=== PATIENT | female | born 1935 | race Caucasian/White ===

== ENCOUNTER 2020-05-31 08:00 | Inpatient (IN) | payer OTHER ==
[2020-05-31] VITALS (32 sets, daily range): BP systolic 113–176; BP diastolic 46–112
[~2020-05-31] VITALS: Ht 152.4 cm; Wt 51.2 kg
--- NOTE | ~2020-05-31 | O ---
[facility] [place] [place] [address] OPERATIVE REPORT Name: JESUS CH Room #: 243-P ADM IN M.R.#: [id number] Admission: 05/31/20 Attend Phys: Phuong Mckeon MD Discharge: Date of : 34 Report #: [id number] THIS REPORT FOR: cc: Smith Paulino MD, Steven A. MD Patterson,Vinny Ceja MD ~ DATE OF SERVICE: 05/31/2020 PREOPERATIVE DIAGNOSES: 1. Gastric volvulus. 2. Paraesophageal hernia. POSTOPERATIVE DIAGNOSES: 1. Gastric volvulus. 2. Paraesophageal hernia. 3. Gastric perforation. OPERATION: 1. Laparoscopic repair of paraesophageal hernia without mesh implantation without fundoplication. 2. Laparoscopic repair of gastric perforation, omental patch repair. 3. Laparoscopic placement of 16-Latvian gastrostomy. SURGEON: Vinny Fregoso MD ANESTHESIA: General. ESTIMATED BLOOD LOSS: Minimal. SPECIMEN: None. DESCRIPTION OF PROCEDURE: After informed consent was obtained, the patient was brought to the operating room and placed supine. SCDs were placed and working, preoperative antibiotics were administered, general anesthesia was induced. The abdomen was prepped and draped in the usual sterile fashion. A 1 mm incision was made in the left upper quadrant. Veress needle was inserted and pneumoperitoneum was established. I then inserted a left periumbilical 5 mm trocar under direct vision using Visiport technique. The patient was then placed in the reverse Trendelenburg position. A Micky retractor was placed in the epigastrium and the liver was retracted anteriorly and superiorly to allow visualization of the hiatus. I placed 2 right upper quadrant 5 mm ports and a left-sided 8 mm trocar. One of the 5 mm port was then switched out to a 10 mm port, 10 mm port in the right upper quadrant. [facility] [address] [place] [address] OPERATIVE REPORT Name: JESUS CH Room #: 243-P [facility] IN [facility].#: [id number] Admission: 05/31/20 Attend Phys: Phuong Mckeon MD Discharge: Date of : 34 Report #: [id number] I began by grasping the pars flaccida. The stomach was then grasped and retracted outside of the mediastinum. LigaSure dissection was used to dissect the pars flaccida and dissection was carried up to the right marci, which was identified. The hernia sac was then incised and the hernia sac was fully reduced anteriorly and posteriorly. During this dissection, I could see that there was a small perforation in the anterior proximal stomach. This is where the tissue was very friable and was likely the ischemic area. Once I had the hernia sac down, a [place] drain was placed posterior to the GE junction to allow for retraction. A full mediastinal dissection was undertaken and all of the hernia sac was reduced. I then repaired the gastrotomy using 3-0 Vicryl in interrupted fashion. I then oversewed the area with a 3-0 silk. A tongue of omentum was fashioned and brought up to the repair and this was incorporated into the stitch with the 3-0 silk to provide omental patch repair. The stomach was then retracted superiorly and to the left. This allowed visualization of the crura. The crura were reapproximated with a 2-0 V-Loc suture in running fashion. I did not place a mesh. The crura came together nicely. I then had the anesthesiologist insufflate the stomach. Three T-bar fasteners were placed under direct vision into the antrum of the stomach. The fasteners were then used to retract the stomach toward the abdominal wall. Stomach was then cannulated with a Seldinger needle. Wire was placed. A dilator with a sheath was placed. The wire was removed. A 16-Latvian gastrostomy tube was placed through the sheath as the sheath was peeled away. The balloon was filled with 3 mL of normal saline. It was brought to the abdominal wall. The T-fasteners were tightened down and this performed the gastrostomy. The liver was then placed back into its anatomic position. The ports were removed under direct vision. The fascia in the right upper quadrant 10 mm incision was closed with a [id number] 0 Vicryl. Skin was closed with 4-0 Monocryl. Incisions were dressed with Steri-Strips. COMPLICATIONS: None. DISPOSITION: The patient was taken to recovery in satisfactory condition. By: 1757 1821 Vinny Fregoso MD /jerman
[~2020-05-31 08:00] MED LIST: ALEVE220 MG PO; AMLODIPINE BESY10 MG PO; ATIVAN1 MG PO; BENICAR40 MG PO; BISOPROLOL FUMAR5 MG PO; CALCIUM 500 +1 EAC5 PO; CELEXA10 MG PO; FERROUS SULFAT324 M1 PO; FISH OIL 1,001000 M2 PO; PROTONIX40 M1 PO; VYTORIN 10-801 EACH PO; ZIAC 10-6.25 M1 EACH PO
[2020-05-31 09:00] LABS: ABSOLUTE NEUTROPHILS 16.4 thou/uL (1.4-8.2); BASOPHILS 0.2 % (0.0-2.0); HEMATOCRIT 48.1 % (37.0-47.0); HEMOGLOBIN 15.8 gm/dL (12.0-15.0); MCH 31.2 pg (26.0-34.0); MCHC 32.8 g/dL (28.0-37.0); MCV 95.2 fL (80.0-100.0); MONOCYTES 3.6 % (1.0-8.0); PLATELET COUNT 285 thou/uL (150-400); POLYS 90.2 % (36.0-66.0); RBC 5.05 mil/uL (4.20-5.00); RDW 13.5 % (10.5-14.5); WBC 18.2 thou/uL (4.0-11.0)
[2020-05-31 09:03] LABS: ANION GAP 13 mmol/L (7-16); BUN 28 mg/dL (7-18); CALCIUM 10.6 mg/dL (8.5-10.1); CHLORIDE 96 mmol/L (98-107); CO2 37 mmol/L (21-32); GLUCOSE 259 mg/dL (74-106); POTASSIUM 3.4 mmol/L (3.5-5.1); SODIUM 146 mmol/L (136-145)
[2020-05-31 09:13] LABS: ALBUMIN 3.6 g/dL (3.4-5.0); SGOT 17 U/L (15-37); SGPT 22 U/L (14-59); TOTAL BILIRUBIN 0.6 mg/dL (0.2-1.0); TOTAL PROTEIN 8.1 g/dL (6.4-8.2); TROPONIN-I <0.06 ng/mL (<0.06)
[2020-05-31 09:33] LABS: URINE BLOOD NEGATIVE (Negative); URINE CLARITY CLEAR; URINE COLOR YELLOW; URINE GLUCOSE-RANDOM* NEGATIVE (Negative); URINE KETONES TRACE (Negative); URINE LEUKOCYTES-REFLEX NEGATIVE (Negative); URINE NITRITE-REFLEX NEGATIVE (Negative); URINE PROTEIN (DIPSTICK) 1+ (Negative)
[2020-05-31 09:37] LABS: ICTOTEST (BILI CONFIRMATORY) Negative (Negative); URINE BILIRUBIN NEGATIVE (Negative)
[2020-05-31 10:06] LABS: SQUAMOUS 0-3 Few /LPF (0-3)
[2020-05-31 10:07] LABS: BACTERIA-REFLEX 1-9 Few /HPF (None Seen); CRYSTALS None Seen /LPF (None Seen); HYALINE CASTS 0-3 Few /LPF (None Seen); URINE WBC-REFLEX 0-5 Rare /HPF (0-5)
[2020-05-31 10:08] LABS: URINE RBC None Seen /HPF (0-2)
--- NOTE | 2020-05-31 10:51 | NUR ---
SPOKE TO PIPE ON IV TEAM NOTIFIED EDP ORDERED A CENTRAL LINE, PIPE REPORTED SHE WOULD COME UP AFTER SHE WAS FINISHED IN ICU. WILL CONTINUE TO MONITOR FOR SAFETY FOR REMAINDER OF THE SHIFT.
--- NOTE | 2020-05-31 11:31 | EKG ---
[address] [address] ELECTROCARDIOGRAM REPORT Name: JESUS CH Room #: REG JEFF Espinoza#: [id number] Admission: 05/31/20 Attend Phys: Discharge: Date of : 34 Report #: [id number] [facility] ED Test Date: 2020-05-31 Test Time: 10:02:55 Pat Name: JESUS CH Department: Room: Gender: F Beauty Advisor: SHAHBAZ COLIN : 1935 Requested By: Dieter Dewitt Order Number: [id number] MD: Klaus Morales Measurements Intervals [place] Rate: 161 P: 16 MN: 138 QRS: 29 QRSD: 123 T: -42 QT: 322 QTc: 527 Interpretive Statements tachycardia, suspect atrial flutter Nonspecific intraventricular conduction delay Artifact in lead(s) I,II,aVR,aVF,V5 Compared to ECG 12/17/2015 10:00:26 Intraventricular conduction delay now present Sinus rhythm no longer present Ventricular premature complex(es) no longer present Myocardial infarct finding no longer present Poor R-wave progression no longer present Electronically Signed On 05-31-2020 11:31:49 CDT by Klaus Morales [email or web address] <ELECTRONICALLY SIGNED> By: Klaus Morales MD, FACC 05/31/20 1131 1002 1002 Klaus Morales MD, FAC /EPI
--- NOTE | 2020-05-31 11:50 | NUR ---
ATTEMPTED TO CALL [facility] TO VERIFY MEDICATION LIST, WAS PLACED ON HOLD FOR 10 MINUTES. HAD TO HANG UP, WILL TRY AGAIN LATER.
--- NOTE | 2020-05-31 12:33 | NUR ---
CONSULTED TO PLACE A CENTRAL LINE IN ER FOR A PATIENT ADMITTING WITH SEPSIS. ORDER AND CONSENT NOTED. SPOKE TO THE PATIENT AND AND THEY BOTH VERBALIZED UNDERSTANDING OF RISKS AND BENIFITS OF LINE PLACEMENT. THE RIGHT IJ WAS WIDLEY PATENT. A #6F TRIPLE LUMEN CENTRAL LINE WAS PLACED PER HOSPITAL POLICY. THE 25CM LINE ADVANCED WITHOUT DIFFICULTY. A STAT CHEST XRAY CONFIRMED LINE IN PROPER PROSITION. CHAIN SALES CONSULTANT NOTIFIED AND LINE WAS RELEASED FOR USE
--- NOTE | 2020-05-31 12:43 | NUR ---
TRANSPORTED TO GI TO PROCEDURE BY GI NURSE, BALL THREAD MACHINE TENDER AND ANESTHESIA.
--- NOTE | 2020-05-31 13:39 | NUR ---
ATTEMPTED TO CALL REPORT, WAS NOTIFIED THAT GI IS CURRENTLY ON THE PHONE WITH THE ACCEPTING NURSE. WILL TRY AGAIN.
--- NOTE | 2020-05-31 13:49 | NUR ---
ATTEMPTED TO CALL REPORT AGAIN, PHONE CONTINUOUSLY RANG; NO ANSWER. WILL ASSIST FURTHER IF NEEDED.
[2020-05-31 14:41] LABS: BASOPHILS 0.3 % (0.0-2.0); EOSINOPHILS 0.1 % (0.0-3.0); HEMATOCRIT 38.3 % (37.0-47.0); LYMPHOCYTES 4.5 % (24.0-44.0); MCH 31.6 pg (26.0-34.0); MCHC 33.3 g/dL (28.0-37.0); MCV 94.9 fL (80.0-100.0); MONOCYTES 7.5 % (1.0-8.0); PLATELET COUNT 217 thou/uL (150-400); POLYS 87.6 % (36.0-66.0); RBC 4.03 mil/uL (4.20-5.00); RDW 13.6 % (10.5-14.5); WBC 19.4 thou/uL (4.0-11.0)
[2020-05-31 14:42] LABS: HEMOGLOBIN 12.8 gm/dL (12.0-15.0)
[2020-05-31 15:21] LABS: ANION GAP 14 mmol/L (7-16); BUN 29 mg/dL (7-18); CALCIUM 10.1 mg/dL (8.5-10.1); CHLORIDE 96 mmol/L (98-107); CO2 36 mmol/L (21-32); CREATININE 1.9 mg/dL (0.6-1.0); GLUCOSE 256 mg/dL (74-106); POTASSIUM 3.5 mmol/L (3.5-5.1); SODIUM 146 mmol/L (136-145)
[2020-05-31 15:30] LABS: TROPONIN-I <0.06 ng/mL (<0.06)
--- NOTE | 2020-05-31 19:36 | NUR ---
RECIEVED PATIENT FROM GI LAB ON STRECHER INTUBATED. ATTACHED TO MONITOR AND WILL BE GOING TO SURGERY SOON. BACK FROM SURGERY AT 1800: NGT TO LIS, GTUBE TO LUQ CLAMPED AND ALMAS BULB TO MID ABDOMEN WITH SMALL AMOUNT OF SANGUINOUS FLUID NOTED. REPORT GIVEN TO NIGHT RN
[2020-05-31 20:36] LABS: CREATININE 1.2 mg/dL (0.6-1.0); MAGNESIUM 1.3 mg/dL (1.8-2.4)
[2020-05-31 20:38] LABS: CALCIUM 7.7 mg/dL (8.5-10.1)
[2020-05-31 20:39] LABS: POTASSIUM 2.7 mmol/L (3.5-5.1)
[2020-05-31 22:29] LABS: BE(vivo) -0.6 mmol/L (-2 to +3); HCO3 23.9 mmol/L (22.0-26.0); PCO2 38.9 mmHg (35.0-45.0); pH 7.406 (7.360-7.450); sO2 98.9 % (92.0-98.0)
[2020-05-31 23:00] LABS: % SATURATION 22 % (20-39); IRON 51 ug/dL (50-170); TIBC 232 ug/dL (250-450)
[2020-06-01] VITALS (67 sets, daily range): BP systolic 70–146; BP diastolic 20–76
[2020-06-01] LABS: FOLIC ACID 99.1 ng/mL (8.6-58.9)
[2020-06-01 05:23] LABS: HEMATOCRIT 36.4 % (37.0-47.0); HEMOGLOBIN 11.9 gm/dL (12.0-15.0); MCH 31.3 pg (26.0-34.0); MCHC 32.7 g/dL (28.0-37.0); MCV 95.9 fL (80.0-100.0); PLATELET COUNT 205 thou/uL (150-400); RBC 3.79 mil/uL (4.20-5.00); RDW 14.1 % (10.5-14.5); WBC 20.6 thou/uL (4.0-11.0)
[2020-06-01 05:39] LABS: ALBUMIN 2.1 g/dL (3.4-5.0); CALCIUM 8.2 mg/dL (8.5-10.1); CREATININE 1.2 mg/dL (0.6-1.0); MAGNESIUM 2.2 mg/dL (1.8-2.4); PHOSPHORUS 2.9 mg/dL (2.5-4.9); TOTAL BILIRUBIN 0.5 mg/dL (0.2-1.0)
[2020-06-01 06:05] LABS: POTASSIUM 3.8 mmol/L (3.5-5.1)
[2020-06-01 07:00] LABS: ABSOLUTE NEUTROPHILS 19.2 thou/uL (1.4-8.2); LARGE PLATELETS OCCASIONAL
[2020-06-01 12:43] LABS: HEMATOCRIT 34.6 % (37.0-47.0); HEMOGLOBIN 11.5 gm/dL (12.0-15.0); MCH 31.7 pg (26.0-34.0); MCHC 33.1 g/dL (28.0-37.0); MCV 95.8 fL (80.0-100.0); RBC 3.61 mil/uL (4.20-5.00); WBC 19.1 thou/uL (4.0-11.0)
[2020-06-01 12:48] LABS: CALCIUM 7.9 mg/dL (8.5-10.1); CREATININE 1.4 mg/dL (0.6-1.0); POTASSIUM 3.2 mmol/L (3.5-5.1)
--- NOTE | 2020-06-01 14:05 | 2DMMODE ---
[facility] [place] [address] 2 D/M-MODE ECHOCARDIOGRAM Name: JESUS CH Room #: 243-P ADM IN M.R.#: [id number] Admission: 05/31/20 Attend Phys: Phuong Mckeon MD Discharge: Date of : 34 Report #: [id number] THIS REPORT FOR: cc: Smith Paulino MD, Steven A. MD Park, Jin S. MD ~ APPROVED REPORT Study performed: 06/01/2020 13:15:53 EXAM: Comprehensive 2D, Doppler, and color-flow Echocardiogram Patient Location: ICU Room #: 243 Status: routine BSA: 1.70 HR: 140 bpm BP: 86/39 mmHg Rhythm: Atrial Fibrillation Other Information Study Quality: Fair/not all measurements taken. Technically limited study due to patient on vent/no mobility/obesity/rapid heart rates.. Indications Afib, hypotension. (Heart rates ranged from 115bpm-180bpm during exam). 2D Dimensions IVSd: 10.82 (7-11mm) LVOT Diam: 20.00 (18-24mm) LVDd: 31.46 mm PWd: 11.42 (7-11mm) LVDs: 22.12 (25-40mm) Aortic Root: 34.39 mm Aortic Valve AoV Peak Giuseppe.: 2.81 m/s AO Peak Gr.: 31.61 mmHg LVOT Max P.30 mmHg AO Mean Gr.: 22.30 mmHg AO V2 Mean: 2.31 m/s LVOT Max V: 1.35 m/s AO V2 VTI: 54.40 cm MARGOT Vmax: 1.51 cm2 Pulmonary Valve [facility] [address] [place] [address] 2 D/M-MODE ECHOCARDIOGRAM Name: JESUS CH Room #: [facility] IN [facility]#: [id number] Admission: 05/31/20 Attend Phys: Phuong Mckeon, Discharge: Date of : 34 Report #: [id number] PV Peak Giuseppe.: 1.03 m/s PV Peak Gr.: 4.27 mmHg Tricuspid Valve TR Peak Giuseppe.: 2.47 m/s RAP Estimate: 10.00 mmHg TR Peak Gr.: 24.32 mmHg PA Pressure: 34.00 mmHg Left Ventricle The left ventricle is normal size. There is normal LV segmental wall motion. There is normal left ventricular wall thickness. The left ventricular systolic function is normal. LVEF is 65%. This study is not technically sufficient to allow evaluation of the LV diastolic function. Right Ventricle The right ventricle is normal size. The right ventricular systolic function is normal. Atria Left atrium is dilated. Right atrium is not well visualized. Aortic Valve Aortic valve is moderately calcified. No aortic regurgitation is present. There is mild valvular aortic stenosis. Calculated aortic valve area is 1.5 cm2 with maximum pressure gradient of 32 mmHg and mean pressure gradient of 22 mmHg. Mitral Valve Mitral valve leaflets are thickened. Mild mitral annular calcification. There is no mitral valve regurgitation noted. No evidence of mitral valve stenosis. Tricuspid Valve The tricuspid valve is normal in structure. Trace tricuspid regurgitation. Estimated PAP is 30-35mmHg. Pulmonic Valve The pulmonary valve is normal in structure. There is no pulmonic valvular regurgitation. Great Vessels The aortic root is normal in size. IVC is normal in size and collapses <50% with inspiration. Pericardium Possible small pericadial effusion. [facility] [address] [place] [address] 2 D/M-MODE ECHOCARDIOGRAM Name: JESUS CH Room #: 243-P [facility] IN .R.#: [id number] Admission: 05/31/20 Attend Phys: Phuong Mckeon, Discharge: Date of : 34 Report #: [id number] <Conclusion> The left ventricle is normal size. There is normal left ventricular wall thickness. The left ventricular systolic function is normal. The right ventricle is normal size. Left atrium is dilated. There is mild valvular aortic stenosis. Mitral valve leaflets are thickened. There is no mitral valve regurgitation noted. <ELECTRONICALLY SIGNED> By: Lukas Samuel MD 06/01/20 1404 1404 1404 Lukas Samuel MD /JUAN
--- NOTE | 2020-06-01 14:45 | NUR ---
0730-DR. THAO IN.FAILED CPAP ATTEMPT.--VW 0730-SPUTUM C&S SENT. --VW ~0900-SHRT BURST OF AFIB, BROKE ON OWN.--VW 0915- AT BEDSIDE.--VW 1015- IN, SPOKE W . LEFT FOR HOME p. PLANS TO RETURN THIS pNOON.--VW
--- NOTE | 2020-06-01 15:24 | NUR ---
chart review. discussed during am rounds. she remains on vent, post op. cm spoke with spouse candice via phone call. she lives home with him, 2 story house 1 step into house and bilat handrails on stairs in home, she can still do stairs. has walker, and wheel chair for long distance. chcs in past. cm asked about LONG-TERM. " yes we have insurance policy but we want to stay in our home for as long as we can. i have her and manage her medication"/candice. will cont following as needed for dc needs.
--- NOTE | 2020-06-01 15:25 | EKG ---
[address] [address] ELECTROCARDIOGRAM REPORT Name: JESUS CH Room #: 243 ADM IN M.R.#: [id number] Admission: 05/31/20 Attend Phys: Phuong Mckeon MD Discharge: Date of : 34 Report #: [id number] [facility] ED Test Date: 2020-05-31 Test Time: 08:53:43 Pat Name: JESUS CH Department: Room: [facility] Gender: F Forensic Anthropologist: MEGAN LONG : 1935 Requested By: Dieter Dewitt Order Number: [id number] MD: Keyur Campa Measurements Intervals [place] Rate: 72 P: ND: QRS: 8 QRSD: 149 T: -31 QT: 390 QTc: 427 Interpretive Statements Sinus with frequent PACs and PVC Poor R-wave progression no longer present Electronically Signed On 06-01-2020 15:24:48 CDT by Keyur Campa [email or web address] <ELECTRONICALLY SIGNED> By: Keyur Campa MD 06/01/20 1524 0853 0853 MD ARNUA Peña
--- NOTE | 2020-06-01 15:26 | EKG ---
[address] [address] ELECTROCARDIOGRAM REPORT Name: JESUS CH Room #: [facility] ADM IN M.R.#: [id number] Admission: 05/31/20 Attend Phys: Phuong Mckeon MD Discharge: Date of : 34 Report #: [id number] [facility] Test Date: 2020-06-01 Test Time: 11:38:53 Pat Name: JESUS CH Department: Room: [facility] Gender: F Wire Bound Box Machine Operator: BHASKAR : 1935 Requested By: Phuong Mckeon Order Number: [id number] MD: Keyur Campa Measurements Intervals [place] Rate: 121 P: 51 NC: 189 QRS: 1 QRSD: 76 T: 41 QT: 298 QTc: 423 Interpretive Statements Atrial fibrillation with rapid ventricular response Electronically Signed On 06-01-2020 15:26:23 CDT by Keyur Campa [email or web address] <ELECTRONICALLY SIGNED> By: Keyur Campa MD 06/01/20 1526 1138 1138 Keyur Campa MD /HEIDE
[2020-06-02] VITALS (95 sets, daily range): BP systolic 91–134; BP diastolic 34–74
[2020-06-02 02:06] LABS: GLYCOHEMOGLOBIN (HGB A1C) 6.1 % (4.8-5.6)
[2020-06-02 02:22] LABS: HEMATOCRIT 34.5 % (37.0-47.0); HEMOGLOBIN 11.3 gm/dL (12.0-15.0); MCH 31.7 pg (26.0-34.0); MCHC 32.8 g/dL (28.0-37.0); MCV 96.7 fL (80.0-100.0); PLATELET COUNT 206 thou/uL (150-400); RBC 3.56 mil/uL (4.20-5.00); RDW 14.3 % (10.5-14.5); WBC 24.7 thou/uL (4.0-11.0)
[2020-06-02 02:33] LABS: MAGNESIUM 1.8 mg/dL (1.8-2.4); PHOSPHORUS 2.5 mg/dL (2.5-4.9)
[2020-06-02 02:36] LABS: ALBUMIN 1.8 g/dL (3.4-5.0); CALCIUM 7.3 mg/dL (8.5-10.1); CREATININE 0.9 mg/dL (0.6-1.0); POTASSIUM 3.8 mmol/L (3.5-5.1); TOTAL BILIRUBIN 0.3 mg/dL (0.2-1.0); TOTAL PROTEIN 4.9 g/dL (6.4-8.2)
[2020-06-02 04:55] LABS: BE(vivo) -3.5 mmol/L (-2 to +3); PCO2 31.6 mmHg (35.0-45.0); PO2 98.2 mmHg (80.0-100.0); sO2 97.6 % (92.0-98.0)
[2020-06-02 08:12] LABS: BE(vivo) -5.2 mmol/L (-2 to +3); HCO3 20.2 mmol/L (22.0-26.0); PCO2 38.5 mmHg (35.0-45.0); PO2 88.8 mmHg (80.0-100.0); pH 7.337 (7.360-7.450); sO2 96.3 % (92.0-98.0)
--- NOTE | 2020-06-02 08:52 | NUR ---
SPOKE W/ PT'S , CALOS, ON THE PHONE. UPDATED ON PT CONDITION W/ REASSURANCES AND EMOTIONAL SUPPORT PROVIDED. CALOS STATED THAT HE WOULD BE VISITING THIS MORNING.
[2020-06-02 08:54] LABS: ABSOLUTE NEUTROPHILS 20.7 thou/uL (1.4-8.2); PLATELET ESTIMATE NORMAL
--- NOTE | 2020-06-02 12:08 | EKG ---
[address] [address] ELECTROCARDIOGRAM REPORT Name: JESUS CH Room #: 243- ADM IN M.R.#: [id number] Admission: 05/31/20 Attend Phys: Phuong Mckeon MD Discharge: Date of : 34 Report #: [id number] [facility] Test Date: 2020-06-02 Test Time: 09:20:03 Pat Name: JESUS CH Department: Room: 243 Gender: F Yarn Texturing Machine Operator: TUAN : 1935 Requested By: Lo Galvan Order Number: [id number] MD: Klaus Morales Measurements Intervals [place] Rate: 103 P: 53 MN: 197 QRS: -11 QRSD: 78 T: -11 QT: 315 QTc: 413 Interpretive Statements Sinus tachycardia Multiform ventricular premature complexes Inferior infarct, old Compared to ECG 06/01/2020 11:38:53 Ventricular premature complex(es) now present Myocardial infarct finding now present Atrial fibrillation no longer present Electronically Signed On 06-02-2020 12:07:46 CDT by Klaus Morales [email or web address] <ELECTRONICALLY SIGNED> By: Klaus Morales MD, FAC 06/02/20 1207 9 9 Klaus Morales MD, [facility] /EPI
[2020-06-02 12:31] LABS: HEMATOCRIT 33.4 % (37.0-47.0); HEMOGLOBIN 10.8 gm/dL (12.0-15.0)
--- NOTE | 2020-06-02 20:09 | NUR ---
This RN spoke to Carmelina, daughter and , Darren at 1999. Updated on patient care and all questions answered.
[2020-06-03] VITALS (34 sets, daily range): BP systolic 98–159; BP diastolic 38–62
[2020-06-03 05:02] LABS: CALCIUM 7.5 mg/dL (8.5-10.1); CREATININE 0.8 mg/dL (0.6-1.0); MAGNESIUM 1.7 mg/dL (1.8-2.4); PHOSPHORUS 1.9 mg/dL (2.5-4.9)
[2020-06-03 10:07] LABS: HEMATOCRIT 31.3 % (37.0-47.0); HEMOGLOBIN 10.1 gm/dL (12.0-15.0); MCH 31.5 pg (26.0-34.0); MCHC 32.1 g/dL (28.0-37.0); MCV 97.8 fL (80.0-100.0); RDW 15.1 % (10.5-14.5); WBC 14.8 thou/uL (4.0-11.0)
[2020-06-03 11:35] LABS: ABSOLUTE NEUTROPHILS 12.1 thou/uL (1.4-8.2); ANISOCYTOSIS SLIGHT; BURR CELLS FEW; POIKILOCYTOSIS SLIGHT
[2020-06-03 11:36] LABS: LARGE PLATELETS RARE; PLATELET COUNT 157 thou/uL (150-400)
--- NOTE | 2020-06-03 14:11 | NUR ---
REPORT RECIEVED FROM CHRISTY GUZMAN.
--- NOTE | 2020-06-03 19:12 | NUR ---
BEDSIDE REPORT GIVEN TO NIGHT RN.
--- NOTE | 2020-06-03 22:00 | NUR ---
TRANSFER TO ROOM 205 VIA BED. REPORT CALLED TO NURSE FOR ONGOING CARE. UPDATED ON GOING TO CCU UNIT FOR CARE AND COMING OUT OF ICU AT THIS TIME FOR CARE
[2020-06-04 00:30] VITALS: BP 122/50
[2020-06-04 04:41] LABS: CALCIUM 7.8 mg/dL (8.5-10.1); CREATININE 0.8 mg/dL (0.6-1.0); MAGNESIUM 1.8 mg/dL (1.8-2.4); PHOSPHORUS 2.7 mg/dL (2.5-4.9); POTASSIUM 4.1 mmol/L (3.5-5.1)
[2020-06-04 04:45] VITALS: BP 136/64
[2020-06-04 07:57] VITALS: BP 127/60
--- NOTE | 2020-06-04 08:12 | NUR ---
ASSUMED CARE FOR PATIENT AT 0700. PT REPORT AT BEDSIDE. ASSESSMENT PERFORMED CHARTED. PT APPEARS TO BE ALERT AND ORIENTED X 2. PT DOES NEED SOME REORIENTATION. PT DOESN'T REMEMBER HAVING SURGERY. VSS. WILL CONTINUE TO MONITOR.
--- NOTE | 2020-06-04 08:49 | NUR ---
PT ARRIVED TO ROOM 205 AT 2230, IV'S INFUSING IN R IJ, TALBOT WITH CLEAR YELLOW URINE, NG IN L NARE TO LIS, PEG TO DEPENDENT DRAINAGE BAG, LAP SITES CDI, VSS, NO C/O PAIN, UPPER EXT EDEMATOUS AND PROPPED UP ON PILLOWS, PT ALERT AND ABLE TO USE CALL LIGHT APPROPRIATLY, COUGHING UP THICK SPUTM AND NEEDING FREQUENT SUCTIONING, BG CHECKED Q 6 HRS AND TREATED, REPORT GIVEN TO NEXT SHIFT TO CON'T WITH PPOC.
[2020-06-04 11:44] VITALS: BP 128/47
--- NOTE | 2020-06-04 12:31 | NUR ---
discussed during los, possible ready for dc on monday06/08/20. cm spoke with khoa spouse dewayne via phone call. khoa transferred from icu yesterday to 2n, pt and ot to eval. she possible need rehab. cm education on acute, and post acute rehab. tried to provided locations/ facilities to her spouse and he stated " she just up to chair today, will discuss this later on."/dewayne - spouse. education on send referral to see if have any bed availability." will wait on this"/spouse. will cont following as needed for dc needs.
--- NOTE | 2020-06-04 15:48 | NUR ---
PT SITTING UP IN CHAIR, WATCHING TV. PTS DRAINS INTACT, ASSESSMENT PERFORMED CHARTED. VSS. WILL CONTINUE TO MONITOR.
[2020-06-04 20:15] VITALS: BP 148/58
[2020-06-05 04:45] VITALS: BP 144/55
--- NOTE | 2020-06-05 07:17 | NUR ---
WATCHED TV MOST OF THE NIGHT.UNABLE TO SLEEP THINKING ABOUT HER FAMILY.PT HAS SOME HALLUCINATIONS TOO.REPOSITIONED Q2 HOURS.ON TPN AND AMIO GTT.MONITOR SHOWS AFIB.POC CONTINUED.
[2020-06-05 08:00] VITALS: BP 120/55
--- NOTE | 2020-06-05 08:08 | NUR ---
ASSUMED PT CARE AT 0700. PT CLEANED UP FROM A BOWEL MOVEMENT WITH RN AND HELP DESK COORDINATOR. PTS VSS. ASSESSMENT PERFORMED AND CHARTED. WILL CONTINUE TO MONITOR AND FOLLOW POC.
--- NOTE | 2020-06-05 14:21 | NUR ---
PT WAS GIVEN ATIVAN. PT CRYING, YELLING AT . PT STATES SHE HEARS HER FAMILY IN THE HALLWAY. INSTRUCTED PATIENT THAT IT IS NOT HER FAMILY. PT APPEARS TO BE VERY ANXIOUS. WILL CONTINUE TO MONITOR.
[2020-06-05 15:32] LABS: HEMATOCRIT 33.8 % (37.0-47.0); HEMOGLOBIN 11.4 gm/dL (12.0-15.0); MCH 32.5 pg (26.0-34.0); MCHC 33.8 g/dL (28.0-37.0); MCV 96.1 fL (80.0-100.0); RBC 3.52 mil/uL (4.20-5.00); RDW 14.4 % (10.5-14.5); WBC 14.2 thou/uL (4.0-11.0)
[2020-06-05 15:39] LABS: CALCIUM 8.2 mg/dL (8.5-10.1); POTASSIUM 4.3 mmol/L (3.5-5.1)
[2020-06-05 16:00] VITALS: BP 102/56
--- NOTE | 2020-06-05 16:44 | NUR ---
PT IS RESTING. VSS. WILL CONTINUE TO MONITOR.
[2020-06-05 20:54] VITALS: BP 130/59
--- NOTE | 2020-06-06 03:29 | NUR ---
Assumed pt care at 1900. No sign of distress noted in pt. Pt is stable. Pt is sleeping. Pt is arousable. Fall precaution in place. Fall assessment in place. Assessment completed and documented. Scheduled meds administered to pt. Repositinng done. Pt is stable through the night. No acute events. Discharge pending. Comtinue to monitor. No further needs at this time.
[2020-06-06 05:25] VITALS: BP 123/60
[2020-06-06 07:49] VITALS: BP 116/51
[2020-06-06 11:28] VITALS: BP 120/51
--- NOTE | 2020-06-06 14:50 | NUR ---
ASSESSMENT CHARTED. PT ALERT AND ORIENTED TO SELF AND SITUATION. VERY EMOTIONAL. PLEASANT AND COOPERATIVE WITH CARES. PRN PAIN MED GIVEN WITH PARIAL RELIEF. AT THE BEDSIDE. UPDATED ON PT'S PROGRESS. NO CONCERNS AT THIS TIME. PT PROGRESSING WELL TOWARDS DISCHARGE GOAL.
[2020-06-06 15:41] VITALS: BP 110/50
[2020-06-06 19:47] VITALS: BP 115/56
[2020-06-07 05:28] VITALS: BP 110/58
[2020-06-07 07:14] VITALS: BP 113/63
--- NOTE | 2020-06-07 07:19 | NUR ---
ASSUMED CARE AT 1900. PT ANXIOUS ABOUT BEING UNABLE TO FALL ASLEEP, GAVE ATIVAN x2 OVERNIGHT. THIS AM, FOUND PT HAD PULLED OUT IJ; PLACED GAUZE AND TAPE OVER SITE; STARTED x2 PIV IN R FA AND RESUMED PPN AND IV ABX. GAVE FULL BATH/LINEN CHANGE/SHAMPOO. PT USED BEDPAN THIS AM, SM LIQUID STOOL OUT. AFTER REPOSITIONING, PT C/O SHARP PULLING PAIN AT DRAIN SITE; GRADUALLY EASED UP, BUT EDUCATED TO INFORM NURSE IF IT STAYED PAINFUL. SHIFT REPORT GIVEN AT 0700.
[2020-06-07 11:42] VITALS: BP 95/54
[2020-06-07 15:18] VITALS: BP 106/42
--- NOTE | 2020-06-07 15:26 | NUR ---
ASSESSMENT CHARTED. PT ALERT AND ORIENTED. VSS. PRN PAIN MED GIVEN WITH PARTIAL RELIEF. REPORT FEELING MUCH BETTER TODAY. AT THE BEDSIDE. PT PROGRESSING WELL TOWARDS DISCHARGE GOAL.
[2020-06-07 20:15] VITALS: BP 134/67
[2020-06-08 04:15] VITALS: BP 114/58
[2020-06-08 07:47] VITALS: BP 103/52
--- NOTE | 2020-06-08 08:13 | NUR ---
ALERT,FORGETFUL,REPOSITIONED Q2 HOURS.SLEPT FOR A WHILE,DENIES PAIN.POC CONTINUED.
[2020-06-08 09:33] LABS: HEMATOCRIT 31.2 % (37.0-47.0); MCH 30.9 pg (26.0-34.0); MCV 96.7 fL (80.0-100.0); RBC 3.23 mil/uL (4.20-5.00); RDW 14.6 % (10.5-14.5); WBC 11.2 thou/uL (4.0-11.0)
[2020-06-08 09:39] LABS: CALCIUM 8.2 mg/dL (8.5-10.1); CREATININE 0.9 mg/dL (0.6-1.0); POTASSIUM 4.5 mmol/L (3.5-5.1)
--- NOTE | 2020-06-08 15:10 | NUR ---
PT PLEASANT AND COOPERATIVE WTH CARES. VSS. PRN PAIN MED GIVEN WITH PARTIAL RELIEF. UP IN THE CHAIR THIS SHIFT. TOLERATING FULL LIQUID DIET WELL. NO CONCERNS AT THIS TIME. PT PROGRESSING WELL TOWARDS DISCHARGE GOAL.
--- NOTE | 2020-06-08 15:24 | NUR ---
met with spouse at bedside. Gave spouse [facility] skilled list to review. Spouse to take home and review list and sp with dtr.
[2020-06-08 15:40] VITALS: BP 117/43
[2020-06-08 20:15] VITALS: BP 121/59
--- NOTE | 2020-06-09 04:39 | NUR ---
ALERT.FORGETFUL.PPN DISCONTINUED.POOR APPETITE.REPOSITIONED Q2 HOURS.MONITOR SHOWS AFIB.POC CONTINUED.
[2020-06-09 04:45] VITALS: BP 109/55
[2020-06-09 07:58] VITALS: BP 109/50
[2020-06-09 11:21] VITALS: BP 114/55
--- NOTE | 2020-06-09 14:34 | NUR ---
AAOX4. AT BEDSIDE. GOAL IS TO INCREASE HER FOOD INTAKE. AFIB PER TELE. WORKING WITH PT AND OT. FALL PRECAUTIONS IN PLACE.
[2020-06-09 15:43] VITALS: BP 108/63
--- NOTE | 2020-06-09 16:52 | NUR ---
FAXED REFERRAL TO [facility] SPOKE WITH JOSR IN ADM SHE RECEIVED REFERRAL AND CAN ACCEPT SHE WILL SUBMIT FOR AUTH. REFERRAL ALSO FAXED TO [facility] RECEIVED CONFIRMATION. RECEIVED CALL FROM JOSR SHE RECEIVED AUTH THAT IS IN AFFECT AT MIDNIGHT TONIGHT. SO SHE SET UP TRANSPORT FOR TOMORROW AT 1500. ALEXSANDER PINTO WILL NOTIFY PT'S AT THE BEDSIDE.
--- NOTE | 2020-06-09 17:05 | NUR ---
[facility] accepting of patient with planned dc in am. Sp with spouse and patient who are in agreement with plan.
--- NOTE | 2020-06-09 18:05 | NUR ---
JANICE REA CM, STATES PATIENT NEEDS A COVID SWAB EARLY TOMORROW MORNING 06/10 SO SHE CAN DISCHARGE TO INPATIENT REHAB.
[2020-06-10 04:45] VITALS: BP 111/58
--- NOTE | 2020-06-10 05:00 | NUR ---
ASSESSMENTS CHARTED, MEDS CHARTED GIVEN. PATIENT SITTING IN RECLINER AT START OF SHIFT. UP X 1 TO BED. BOWEL MOVEMENT AT START OF SHIFT. PATIENT USING BEDPAN AND BSC DURING SHIFT. PATIENT HAS GASTRIC TUBE CLAMPED. PLAN IS FOR PATIENT TO DISCHARGE TO REHAB IN [place]. PATIENT HAD COVID TEST YESTERDAY AND IT IS NEGATIVE. PATIENT HAD BOUT OF NAUSEA AND SPIT UP SOME PHLEM. BY TIME ZOFRAN WAS ON MAY, PATIENT WAS ASLEEP AND UPON WAKING, SHE WAS NO LONGER NAUSEOUS. FALL PRECAUTIONS IN PLACE DURING SHIFT.
[2020-06-10 07:25] VITALS: BP 130/48
[2020-06-10 11:09] VITALS: BP 122/55
[2020-06-10] MEDS ORDERED: DILTIAZEM ER240 M2 PO (11:34)
[2020-06-10] MEDS ORDERED: ATIVAN0.5 M1 PO (11:34)
[2020-06-10] MEDS ORDERED: METOPROLOL SUCC50 MG PO (11:34)
[2020-06-10] MEDS ORDERED: AUGMENTIN 875-1 EACH PO (11:34)
[2020-06-10] MEDS ORDERED: PACERONE 200 M200 M1 PO (11:34)
[2020-06-10] MEDS ORDERED: HYDROCODON-ACE1 EAC7 PO (11:34)
--- NOTE | 2020-06-10 15:03 | NUR ---
PT DISCHARGING TODAY TO [facility] FAXED DC ORDERS/SUMMARY TO FACILITY SPOKE WITH JOSR IN ADM SHE RECEIVED ORDERS AND ARRANGED TRANSPORT BY [facility] FOR 1300 TODAY. NOTIFIED PT'S AT THE BEDSIDE THAT TRANSPORT TIME CHANGED FROM 1500 TO 1300 AND HE IS IN AGREEMENT WITH CHANGE. UNIT NOTIFIED AND CHART COPY PER US. RN TO CALL REPORT.
== END 2020-06-10 13:52 | DRG 853 ==
LOC: ER 08:00 → ICU 14:32 → 2N 14:32
PROVIDERS: Emergency Medicine; Hospitalist; Internal Medicine Pulmonary Disease; Pediatrics; ADMIT Internal Medicine; ATTEND Internal Medicine
PROC: 5A1945Z Respiratory Ventilation, 24-96 Consecutive Hours (ICD-10-PCS; principal; 2020-05-31)
PROC: 0DH64UZ Insertion of Feeding Device into Stomach, Percutaneous Endoscopic Approach (ICD-10-PCS; principal; 2020-05-31)
PROC: 0BH17EZ Insertion of Endotracheal Airway into Trachea, Via Natural or Artificial Opening (ICD-10-PCS; principal; 2020-05-31)
PROC: 0BQT4ZZ Repair Diaphragm, Percutaneous Endoscopic Approach (ICD-10-PCS; principal; 2020-05-31)
PROC: 0DJ08ZZ Inspection of Upper Intestinal Tract, Via Natural or Artificial Opening Endoscopic (ICD-10-PCS; principal; 2020-05-31)
PROC: 0DQU4ZZ Repair Omentum, Percutaneous Endoscopic Approach (ICD-10-PCS; principal; 2020-05-31)
PROC: 02HV33Z Insertion of Infusion Device into Superior Vena Cava, Percutaneous Approach (ICD-10-PCS; principal; 2020-05-31)
PROC: 0DQ64ZZ Repair Stomach, Percutaneous Endoscopic Approach (ICD-10-PCS; 2020-05-31)
PROC: 5A0935A Assistance with Respiratory Ventilation, Less than 24 Consecutive Hours, High Flow/Velocity Cannula (ICD-10-PCS; 2020-06-03)
DX: A41.9 Sepsis, unspecified organism (principal); K56.2 Volvulus; J69.0 Pneumonitis due to inhalation of food and vomit; J96.21 Acute and chronic respiratory failure with hypoxia; R57.1 Hypovolemic shock; N17.9 Acute kidney failure, unspecified; I48.92 Unspecified atrial flutter; K92.1 Melena; I47.1 Supraventricular tachycardia; D62 Acute posthemorrhagic anemia; I48.20 Chronic atrial fibrillation, unspecified; R65.20 Severe sepsis without septic shock; K44.9 Diaphragmatic hernia without obstruction or gangrene; I10 Essential (primary) hypertension; E78.5 Hyperlipidemia, unspecified; F41.9 Anxiety disorder, unspecified; F32.9 Major depressive disorder, single episode, unspecified; K21.9 Gastro-esophageal reflux disease without esophagitis; I95.9 Hypotension, unspecified; E87.6 Hypokalemia; E83.42 Hypomagnesemia; R53.81 Other malaise; Z20.822 Contact with and (suspected) exposure to COVID-19; Z94.7 Corneal transplant status; Z79.899 Other long term (current) drug therapy
CPT/HCPCS: 10078; 10081; 50101; 50411; 50555; 52265; 52266; 53307; 53310; 56462; 56525; 56526; 58574; 62110; 62900